=== PATIENT | female | born 1960 | race Hispanic/Latino ===

== ENCOUNTER 2018-05-06 13:07 | Observation (INO) | payer OTHER ==
[~2018-05-06] VITALS: Ht 154.9 cm; Wt 80.7 kg
--- OUTSIDE RECORDS SUMMARY | 2018-05-06 13:10 | XMS REPORT | Summary of Care ---
Author Author [facility] Organization [facility] Address Unknown Phone Unavailable Encounter KARLA Napoles(RICHY) [id number] Date(s): 01/14/16 - 01/14/16 [facility] [address] [place] [address]- Discharge Disposition: Left Against Medical Advise Attending Physician: Edilberto Ren MD Vital Signs Most recent to 1 oldest [Reference Range]: Height 154.94 cm (01/14/16 12:18 PM) Temperature Oral 98.4 DegF [96.4-99.1 DegF] (01/14/16 12:18 PM) Blood Pressure 180/95 mmHg [90-140/60-90 mmHg] *HI* (01/14/16 12:18 PM) Respiratory Rate 18 BRMIN [14-20 BRMIN] (01/14/16 12:18 PM) Peripheral Pulse 82 bpm Rate [60-100 bpm] (01/14/16 12:18 PM) Weight 86.364 kg (01/14/16 12:18 PM) Body Mass Index 35.98 m2 (01/14/16 12:18 PM) Problem List Condition Effective Dates Status Health Status Informant Hypertension(Confirm Resolved ed) Allergies, Adverse Reactions, Alerts Substance Reaction Severity Status aspirin Active Medications Benadryl 25 mg, 0.5 mL, Route: IVP, Drug form: INJ, ONCE, Dosing Weight 86.364, kg, Prior ity: STAT, Start date: 01/14/16 12:25:00 ALUMINUM POLISHER, Stop date: 01/14/16 12:25:00 ALUMINUM POLISHER Notes: (Same as: Benadryl) Start Date: 01/14/16 Stop Date: 01/14/16 Status: Ordered Reglan 10 mg, 2 mL, Route: IVP, Drug form: INJ, ONCE, Dosing Weight 86.364, kg, Priorit y: STAT, Start date: 01/14/16 12:25:00 ALUMINUM POLISHER, Stop date: 01/14/16 12:25:00 ALUMINUM POLISHER Notes: (Same as: Claudette) Start Date: 01/14/16 Stop Date: 01/14/16 Status: Ordered Sodium Chloride 0.9% (Bolus) IV 1,000 mL, 1,000 ml/hr, Infuse Over: 1 hr, Route: IV, 1,000, Drug form: INJ, ONCE , Priority: STAT, Dosing Weight 86.364 kg, Start date: 01/14/16 12:26:00 ALUMINUM POLISHER, Du ration: 1 doses or times, Stop date: 01/14/16 12:26:00 ALUMINUM POLISHER Start Date: 01/14/16 Stop Date: 01/14/16 Status: Ordered Tylenol 650 mg, Route: PO, Drug form: TAB, ONCE, Dosing Weight 86.364, kg, Priority: STA T, Start date: 01/14/16 12:30:00 ALUMINUM POLISHER, Stop date: 01/14/16 12:30:00 ALUMINUM POLISHER Start Date: 01/14/16 Stop Date: 01/14/16 Status: Completed Results No data available for this section Immunizations No data available for this section Procedures No data available for this section Social History No data available for this section Assessment and Plan No data available for this section
--- OUTSIDE RECORDS SUMMARY | 2018-05-06 13:10 | XMS REPORT | Summary of Care ---
Author Author [facility] Organization [facility] Address Unknown Phone Unavailable Encounter HQ Anupamantr_kell(FIN) [id number] Date(s): 10/24/16 - 10/24/16 [facility] [address] [place] [address]- Discharge Disposition: Home or Self Care Attending Physician: Joe Arteaga MD Referring Physician: Joe Arteaga MD Vital Signs No data available for this section Problem List Condition Effective Dates Status Health Status Informant Hypertension(Confirm Resolved ed) Allergies, Adverse Reactions, Alerts Substance Reaction Severity Status aspirin Active Medications No data available for this section Results No data available for this section Immunizations No data available for this section Procedures No data available for this section Social History No data available for this section Assessment and Plan No data available for this section
--- OUTSIDE RECORDS SUMMARY | 2018-05-06 13:10 | XMS REPORT | Clinical Summary ---
Author Author [facility] Address Unknown Phone Unavailable Care Team Providers Care Desktop Analyst Name Role Phone Asked, No Pcp PCP Unavailable Allergies Comments Active Allergy Reactions Severity Noted Date Aspirin 03/24/2017 Lisinopril 03/24/2017 Medications End Date Status Medication Sig Dispensed Refills Start Date Active omeprazole-sodium Take 1 0 bicarbonate (OMEPPI) capsule by 40-1.1 mg-gram per mouth daily capsule before breakfast. Active telmisartan (MICARDIS) 80 Take 80 mg by 0 MG tablet mouth daily. Active atorvastatin (LIPITOR) 20 Take 20 mg by 0 MG tablet mouth daily. Default OP ins 10/13/2018 Active gabapentin (NEURONTIN) Take 1 60 capsule 2 300 mg capsule capsule (300 8 mg total) by mouth 2 (two) times a day. 08/10/2017 Discontinued traMADol (ULTRAM) 50 mg Take 50 mg by 0 tablet mouth every 6 (six) hours as needed for moderate pain. 10/13/2017 Discontinued gabapentin (NEURONTIN) Take 1 90 capsule 11 300 mg capsule capsule (300 8 mg total) by mouth 3 (three) times a day. Active Problems Problem Noted Date Chronic bilateral thoracic back pain 03/28/2017 Encounters Care Team Description Date Type Specialty Carlos Samayoa MD Thoracic facet joint syndrome (HCC) (Primary Dx) 04/19/2018 Office Visit Pain Medicine Carlos Samayoa MD Thoracic facet joint syndrome (HCC) (Primary Dx) 04/05/2018 Procedure visit Pain Medicine Carlos Samayoa MD Thoracic facet joint syndrome (HCC) (Primary Dx); Myofascial pain; Musculoskeletal pain, chronic 03/13/2018 Office Visit Pain Medicine Carlos Samayoa MD Thoracic facet joint syndrome (HCC) (Primary Dx) 02/20/2018 Procedure visit Pain Medicine Carlos Samayoa MD Thoracic facet joint syndrome (Primary Dx); Chronic pain syndrome; Myofascial pain 10/13/2017 Office Visit Pain Medicine Carlos Samayoa MD Thoracic facet joint syndrome (Primary Dx) 09/28/2017 Procedure visit Pain Medicine Carlos Samayoa MD Chronic pain syndrome (Primary Dx); Musculoskeletal pain, chronic; Thoracic facet joint syndrome 09/15/2017 Office Visit Pain Medicine Carlos Samayoa MD Myofascial pain (Primary Dx) 08/15/2017 Procedure visit Pain Medicine Carlos Samayoa MD Chronic pain syndrome (Primary Dx); Neuropathic pain; Myofascial pain; Musculoskeletal pain, chronic 08/10/2017 Office Visit Pain Medicine Keenan Beyer MD Cervical radiculopathy 07/14/2017 Hospital Radiology Encounter Keenan Beyer MD Thoracic radiculopathy 07/14/2017 Hospital Radiology Encounter Keenan Beyer MD Chronic bilateral thoracic back pain (Primary Dx) 07/05/2017 Office Visit Neurosurgery Luana Medellin MA Cervical radiculopathy (Primary Dx); Thoracic radiculopathy 07/05/2017 Transcribe Neurosurgery Orders after 05/05/2017 Family History Medical History Relation Name Comments Cancer Other back or neck problems/rheumatoid arthritis/coronary artery disease/high blood pressure/lung problems/diabetes/heart problems/stroke Relation Name Status Comments Other Other Social History Date Tobacco Use Types Packs/Day Years Used Never Smoker Smokeless Tobacco: Never Used Alcohol Use Drinks/Week oz/Week Comments No Sex Assigned at Date Recorded Not on file Industry Job Start Date Occupation Not on file Not on file Not on file Travel End Travel History Travel Start No recent travel history available. Last Filed Vital Signs Time Taken Vital Sign Reading 04/19/2018 2:09 PM BAIT TIER Blood Pressure 102/72 04/19/2018 2:09 PM BAIT TIER Pulse 90 - Temperature - - Respiratory Rate - - Oxygen Saturation - - Inhaled Oxygen - Concentration 10/13/2017 10:08 AM CDT Weight 79.4 kg (175 lb) 08/10/2017 3:21 PM CDT Height 154.9 cm (5' 1") 10/13/2017 10:08 AM CDT Body Mass Index 33.07 Plan of Treatment Health Maintenance Due Date Last Done Comments CERVICAL CANCER SCREENING 1982 BREAST CANCER SCREENING 2011 COLON CANCER SCREENING 2011 SHINGLES VACCINES (#1) 2011 INFLUENZA VACCINE 10/04/2017 Procedures Comments Procedure Name Priority Date/Time Associated Diagnosis MRI THORACIC SPINE WO Routine 07/14/2017 Thoracic radiculopathy CONTRAST 3:22 PM CDT MRI CERVICAL SPINE WO Routine 07/14/2017 Cervical radiculopathy CONTRAST 3:00 PM CDT after 05/05/2017 Results * MRI Thoracic Spine Wo Contrast (07/14/2017 3:22 PM CDT) Narrative Performed At [facility] EXAMINATION: MRI THORACIC SPINE WO CONTRAST CLINICAL HISTORY: M54.14 Radiculopathythoracic region, THORACACIC RADICULOPATHY COMPARISON:None TECHNIQUE: Multiplanar multisequence noncontrast enhanced examination was performed of the thoracic spine. FINDINGS: Vertebral body heights are maintained. Bone marrow signal is within normal limits. Cord signal and size appear normal. Patent spinal canal and neural foramina at all thoracic levels. Few areas of mild ligamentum flavum thickening in the lower thoracic spine. No more than minimal disc bulge or protrusion at any thoracic level. IMPRESSION: Minimal degenerative changes of the thoracic spine without significant spinal canal or neural foraminal stenosis. [id number] Procedure Note Interface, Radiology Results Incoming - 07/14/2017 5:26 PM CDT EXAMINATION: MRI THORACIC SPINE WO CONTRAST CLINICAL HISTORY: M54.14 Radiculopathy thoracic region, THORACACIC RADICULOPATHY COMPARISON: None TECHNIQUE: Multiplanar multisequence noncontrast enhanced examination was performed of the thoracic spine. FINDINGS: Vertebral body heights are maintained. Bone marrow signal is within normal limits. Cord signal and size appear normal. Patent spinal canal and neural foramina at all thoracic levels. Few areas of mild ligamentum flavum thickening in the lower thoracic spine. No more than minimal disc bulge or protrusion at any thoracic level. IMPRESSION: Minimal degenerative changes of the thoracic spine without significant spinal canal or neural foraminal stenosis. [id number] Performing Organization Address City/State/Zipcode Phone Number [facility] [address] [place] [address] * MRI Cervical Spine Wo Contrast (07/14/2017 3:00 PM CDT) Narrative Performed At EXAMINATION:MRI CERVICAL SPINE WO CONTRAST [facility] CLINICAL HISTORY:M54.12 Radiculopathycervical region, NECK PAINCERVICAL SPINE, CERVICAL RADICULOPATHY COMPARISON:None. FINDINGS: Cervical spine alignment is within normal limits. No suspicious focal bone marrow lesions. Visualized spinal cord is normal in appearance. C2-3: No central canal or foraminal narrowing. C3-4: No central canal or foraminal narrowing. C4-5: No central canal or foraminal narrowing. C5-C6: No central canal or foraminal narrowing. C6-C7: No central canal or foraminal narrowing. C7-T1: No central canal or foraminal narrowing. IMPRESSION: No canal or foraminal narrowing in the cervical spine. [id number] Procedure Note Interface, Radiology Results Incoming - 07/14/2017 4:23 PM CDT EXAMINATION: MRI CERVICAL SPINE WO CONTRAST CLINICAL HISTORY: M54.12 Radiculopathy cervical region, NECK PAIN CERVICAL SPINE, CERVICAL RADICULOPATHY COMPARISON: None. FINDINGS: Cervical spine alignment is within normal limits. No suspicious focal bone marrow lesions. Visualized spinal cord is normal in appearance. C2-3: No central canal or foraminal narrowing. C3-4: No central canal or foraminal narrowing. C4-5: No central canal or foraminal narrowing. C5-C6: No central canal or foraminal narrowing. C6-C7: No central canal or foraminal narrowing. C7-T1: No central canal or foraminal narrowing. IMPRESSION: No canal or foraminal narrowing in the cervical spine. [facility]-[id number] Performing Organization Address City/State/Zipcode Phone Number [facility] [address] [place] [address] after 05/05/2017 Insurance Payer Benefit Subscriber ID Type Phone Address Plan / Group [employer] xxxxxxxxx PPO /[employer] SIG ADMIN Advance Directives Patient has advance care planning documents on file. For more information, grabiel thao contact: Julian Almanzar [address] [facility] [place] [address]
--- OUTSIDE RECORDS SUMMARY | 2018-05-06 13:10 | XMS REPORT | Continuity of Care Document ---
Author Author [facility] Address Unknown Phone Unavailable Problems Problem Status Onset Date Classification Date Reported Comments Source R10.10 Active 10/16/2017 [facility] Pain in thoracic spine 06/23/2017 09/21/2017 [facility] [place] BACK Active 03/06/2017 [facility] [place] MENOPAUSAL Active 02/16/2017 [facility] M54.9 - DORSALGIA, UNSPECIFIED M48.50XA Active 02/08/2017 [facility] Diaza R68.81-EARLY SATIETY , K21.0 - GASTRO-ES Active 10/12/2016 [facility] MIGRAINS Active 01/14/2016 [facility] Hypertension Resolved Problem 09/21/2017 [facility] [place] Hypertension Resolved Problem 03/06/2017 [facility] Other specified dorsopathies, thoracic region 08/22/2017 [facility] [place] Essential hypertension 08/22/2017 [facility] Medications Medication Details Route Status Patient Instructions Ordering Provider Order Date Source Tylenol 650 mg, Route: PO, Drug form: TAB, ONCE, Dosing Weight 86.364, kg, Priority: STAT, Start date: 01/14/16 12:30:00 WEB ANALYTICS SPECIALIST, Stop date: 01/14/16 12:30:00 WEB ANALYTICS SPECIALIST Inactive 01/14/2016 [facility] Sodium Chloride 0.154 MEQ/ML Injectable Solution 1,000 mL, 1,000 ml/hr, Infuse Over: 1 hr, Route: IV, 1,000, Drug form: INJ, ONCE, Priority: STAT, Dosing Weight 86.364 kg, Start date: 01/14/16 12:26:00 WEB ANALYTICS SPECIALIST, Duration: 1 doses or times, Stop date: 01/14/16 12:26:00 WEB ANALYTICS SPECIALIST Inactive 01/14/2016 [facility] Reglan 10 mg, 2 mL, Route: IVP, Drug form: INJ, ONCE, Dosing Weight 86.364, kg, Priority: STAT, Start date: 01/14/16 12:25:00 WEB ANALYTICS SPECIALIST, Stop date: 01/14/16 12:25:00 CSTNotes: (Same as: Reglan) Inactive 01/14/2016 [facility] Benadryl 25 mg, 0.5 mL, Route: IVP, Drug form: INJ, ONCE, Dosing Weight 86.364, kg, Priority: STAT, Start date: 01/14/16 12:25:00 WEB ANALYTICS SPECIALIST, Stop date: 01/14/16 12:25:00 CSTNotes: (Same as: Benadryl) Inactive 01/14/2016 [facility] Allergies, Adverse Reactions, Alerts Substance Category Reaction Severity Reaction type Status Date Reported Comments Source aspirin Assertion Drug allergy Active [facility] [place] Immunizations Immunization Date Given Site Status Last Updated Comments Source Results Order Name Results Value Reference Range Date Interpretation Comments Source Abdomen complete US Abdomen complete US Patient Name: ELSIE CURRY : 1960; Age: 57 years Female MR: [id number] Study: Abdomen complete US 10/23/2017 7:57 AM CDT CLINICAL INDICATION: upper abdominal pain - upper abdominal pain COMPARISON: None TECHNIQUE: Grayscale and limited color sonographic evaluation of the abdomen was performed using standard technique. FINDINGS: Liver: The liver demonstrates increased echogenicity and is normal in size, measuring 13.1 cm. No focal liver lesion identified. The main portal vein demonstrates normal hepatopedal flow. Gallbladder: Normal appearance of the gallbladder without evidence of stones, wall thickening, or pericholecystic fluid. Biliary: No intra or extrahepatic biliary ductal dilatation. The common bile duct measures 0.28 cm. Pancreas: The visualized portions of the pancreatic body are unremarkable. Spleen: The spleen is normal in echogenicity and in size, measuring 10.7 cm in length. Kidney: The right kidney measures 10.9 cm in length. The left kidney measures 11.1 cm in length. Normal renal echogenicity and contour without evidence of hydronephrosis. Aorta and IVC: The visualized portions are unremarkable. No evidence of free fluid. IMPRESSION: Hepatic steatosis. SL: [id number] 10/23/2017 - - Read by: Jorge Stovall MD Dictated Date/time: 10/23/17 09:39 Electronically Signed by: Jorge Stovall MD 10/23/17 09:41 FINAL REPORT [facility] Bone Density Scan Bone Density Scan Patient Name: ELSIE CURRY : 1960; Age: 57 years y/o Female MR: [id number] Study: Bone Density Scan 02/20/2017 10:49 AM WEB ANALYTICS SPECIALIST Ordering Physician: Andressa Paige MD Clinical Indication: - N95.1 Menopausal and female climacteric states. Comparison: None FINDINGS: The axial lumbar bone mineral density is 100% of the expected age matched bone mass with a T-score 0.0. Axial lumbar average BMD is 1.050 g/cm2. The left femoral neck bone mineral density is 100% of the expected age matched bone mass with a T-score of 0.0. Left femoral neck BMD is 0.878 g/cm2. The total femoral BMD is 1.157 g/cm2. IMPRESSION: 1. Normal bone mineral density of the lumbar spine. 2. Normal bone mineral density of the left femoral neck. The World Health Organization has established that OSTEOPOROSIS occurs at -2.5 or more standard deviations (SD) below peak bone mass. OSTEOPENIA (low bone mass) occurs at -1.0 standard deviations to -2.5 standard deviations below peak bone mass. SL: [id number] 02/20/2017 - - Read by: Sammy Gonzalez MD Dictated Date/time: 02/20/17 11:20 Electronically Signed by: Sammy Gonzalez MD 02/20/17 11:20 FINAL REPORT [facility] Stomach emptying NM Stomach emptying NM Clinical Indication: - R68.81 Early satiety; Comparison: None TECHNIQUE: A gastric emptying study is performed using 1 mCi of technetium 99m sulfur colloid mixed with scrambled egg. FINDINGS: There is normal gastric emptying noted. The T-1/2 is 49 minutes (normal for solids < 90 minutes). There is progression of the radiotracer into bowel. At 4 hours there is 95.9% gastric emptying. IMPRESSION: 1. Normal gastric emptying. SL: [id number] 10/24/2016 - - Read by: Bora Ramires MD Dictated Date/time: 10/24/16 14:43 Electronically Signed by: Bora Ramires MD 10/24/16 14:44 FINAL REPORT [facility] Vital Signs Vital Sign Value Date Comments Source Weight 86.364 01/14/2016 [facility] BMI Calculated 35.98 01/14/2016 [facility] Temperature Oral (F) 98.4 F 01/14/2016 [facility] Systolic (mm Hg) 180 01/14/2016 [facility] Diastolic (mm Hg) 95 01/14/2016 [facility] Heart Rate 82 01/14/2016 [facility] Respitory Rate 18 01/14/2016 [facility] Height 154.94 cm 01/14/2016 [facility] Encounters Location Location Details Encounter Type Encounter Number Reason For Visit Attending Provider ADM Date DC Date Status Source [facility] [id number] Edilberto Guajardouer 01/14/2016 01/14/2016 [facility] Outpatient [id number] Joe Arteaga 10/24/2016 10/25/2016 [facility] Outpatient [id number] Andressa Paige 02/20/2017 02/21/2017 [facility] Phone Message [id number] 03/02/2017 03/04/2017 [facility] [place] [facility] Patients [id number] Keenan Beyer 04/17/2017 05/17/2017 [facility] [place] [facility] [place] [facility] Patients [id number] Keenan Beyer 05/17/2017 06/16/2017 [facility] [place] [facility] [place] [facility] Patients [id number] Keenan Beyer 06/19/2017 07/19/2017 [facility] [place] Procedures Procedure Code Date Perfomer Comments Source
--- OUTSIDE RECORDS SUMMARY | 2018-05-06 13:11 | XMS REPORT | Summary of Care ---
Author Author [facility] Organization [facility] Address Unknown Phone Unavailable Encounter HQ Encntr_kell(FIN) [id number] Date(s): 02/20/17 - 02/20/17 [facility] [address] [place] [address]- [phone] Discharge Disposition: Home or Self Care Attending Physician: Andressa Paige MD Referring Physician: Andressa Paige MD Vital Signs No data available for [...]
--- OUTSIDE RECORDS SUMMARY | 2018-05-06 13:11 | XMS REPORT | Summary of Care ---
Author Author [facility] [place] Organization [facility] Address Unknown Phone Unavailable Encounter HQ Encntr_alias(FIN) [id number] Date(s): 06/19/17 - 07/18/17 [facility] [place] Discharge Disposition: Home or Self Care Attending Physician: Keenan Beyer MD Vital Signs No data available for [...]
--- OUTSIDE RECORDS SUMMARY | 2018-05-06 13:11 | XMS REPORT | Summary of Care ---
Author Author [facility] Organization [facility] [place] Address Unknown Phone Unavailable Encounter HQ Encntr_alias(FIN) [id number] Date(s): 04/17/17 - 05/16/[address] [facility] [place] Encounter Diagnosis Pain in thoracic spine (Final) - 05/20/17 Other specified dorsopathies, thoracic region (Final) - Essential (primary) hypertension (Final) - Discharge Disposition: Home or Self Care Attending [...]
--- OUTSIDE RECORDS SUMMARY | 2018-05-06 13:11 | XMS REPORT | Summary of Care ---
Author Author [facility] [place] Organization [facility] Address Unknown Phone Unavailable Encounter HQ Encntr_alias(FIN) [id number] Date(s): 05/17/17 - 06/15/17 [facility] [place] Encounter Diagnosis Pain in thoracic spine (Final) - 06/22/17 Discharge Disposition: Home or Self Care Attending [...]
--- OUTSIDE RECORDS SUMMARY | 2018-05-06 13:11 | XMS REPORT | Summary of Care ---
Author Author [facility] Organization [facility] Address Unknown Phone Unavailable Encounter HQ Encntr_alias(FIN) [id number] Date(s): 03/02/17 - 03/03/17 [facility] Spine [facility] [address] [facility] [address] [phone] Vital Signs No data available for this [...]
--- OUTSIDE RECORDS SUMMARY | 2018-05-06 13:11 | XMS REPORT | Summary of Care ---
Author Author [facility] [place] Organization [facility] [place] Address Unknown Phone Unavailable Encounter HQ Encntr_alias(FIN) [id number] Date(s): 05/17/17 - 06/15/17 [facility] [place] Discharge Disposition: [...]
[2018-05-06] MEDS ORDERED: METFORMIN HCL500 MG PO (13:20)
[2018-05-06] MEDS ORDERED: GABAPENTIN300 MG PO (13:20)
[2018-05-06] MEDS ORDERED: MICARDIS40 MG PO (13:20)
[2018-05-06] MEDS ORDERED: ATORVASTATIN CA20 MG PO (13:20)
[2018-05-06] MEDS ORDERED: NITROGLYCERIN 0.4 MG SUBL SL ONE (13:30)
[2018-05-06] MEDS ORDERED: ASPIRIN 81 MG CHEW TAB PO ONE (13:30)
--- NOTE | 2018-05-06 13:47 | NUR ---
Xray at bedside.
[2018-05-06 13:53] LABS: BASOPHILS % 0.6 % (0.0-1.0); EOSINOPHILS # (AUTO) 0.1 (0.0-0.4); EOSINOPHILS % 1.1 % (0.0-6.0); HEMATOCRIT 38.5 % (34.2-44.1); HEMOGLOBIN 12.7 g/dL (12.0-16.0); LYMPHOCYTES # (AUTO) 2.1 (1.0-3.2); LYMPHOCYTES % 33.5 % (18.0-39.1); MEAN CORPUSCULAR HEMOGLOBIN 27.3 pg (28-32); MEAN CORPUSCULAR VOLUME 82.8 fL (81-99); MONOCYTES # (AUTO) 0.4 (0.2-0.8); MONOCYTES % 6.1 % (4.4-11.3); NEUTROPHILS # (AUTO) 3.6 (2.1-6.9); NEUTROPHILS % 58.4 % (38.7-80.0); PLATELET COUNT 315 x10e3/uL (140-360); RED BLOOD COUNT 4.65 x10e6/uL (3.6-5.1); RED CELL DISTRIBUTION WIDTH 13.9 % (11.7-14.4)
--- NOTE | 2018-05-06 14:11 | Diagnostic Imaging Report ---
Examination: Single AP view of the chest. COMPARISON: None. INDICATION: Chest pain DISCUSSION: Lines/tubes: None. Lungs: The lungs are well inflated and clear. No pneumonia or pulmonary edema. Pleura: No pleural effusion or pneumothorax. Heart and mediastinum: The heart and the mediastinum are unremarkable. Bones and soft tissues: No acute bony abnormalities. IMPRESSION: 1. No acute cardiopulmonary abnormalities. Signed by: Dr. Giuseppe [facility] M.D. on 05/06/2018 2:07 PM
[2018-05-06 14:27] LABS: ALANINE AMINOTRANSFERASE 18 IU/L (0-55); ALBUMIN 4.3 g/dL (3.5-5.0); ALBUMIN/GLOBULIN RATIO 1.1 (0.8-2.0); ALKALINE PHOSPHATASE 91 IU/L (40-150); ANION GAP 13.6 mmol/L (8-16); BLOOD UREA NITROGEN 10 mg/dL (7-26); BUN/CREATININE RATIO 12 (6-25); CALCIUM 10.1 mg/dL (8.4-10.2); CARBON DIOXIDE 24 mmol/L (22-29); CHLORIDE 104 mmol/L (98-107); CREATINE KINASE 107 IU/L (29-168); CREATININE, SERUM 0.81 mg/dL (0.57-1.11); EST GLOMERULAR FILTRATION RATE > 60 ML/MIN (60-); GLUCOSE 139 mg/dL (74-118); POTASSIUM 3.6 mmol/L (3.5-5.1); SODIUM 138 mmol/L (136-145)
[2018-05-06] MEDS ORDERED: NITROGLYCERIN 0.4 MG SUBL SL PRN (14:45)
[2018-05-06 14:46] LABS: THYROID STIMULATING HORMONE 1.251 uIU/mL (0.350-4.940)
--- OUTSIDE RECORDS SUMMARY | 2018-05-06 15:10 | XMS REPORT | Clinical Summary ---
Author Author [facility] Address Unknown Phone Unavailable Care Team Providers Care White Washer Name Role Phone Asked, No Pcp PCP [...] (Primary Dx) 08/15/2017 Procedure visit Pain Medicine aCrlos Samayoa MD Chronic pain syndrome (Primary Dx); [...] Taken Vital Sign Reading 04/19/2018 2:09 PM MAITRE D' Blood Pressure 102/72 04/19/2018 2:09 PM MAITRE D' Pulse 90 - Temperature - - Respiratory [...] significant spinal canal or neural foraminal stenosis. [id number] Procedure Note Interface, Radiology Results Incoming - [...] significant spinal canal or neural foraminal stenosis. [id number] Performing Organization Address City/State/Zipcode Phone Number [facility] [address] [place] [address] * MRI Cervical Spine Wo Contrast (07/14/2017 [...] or foraminal narrowing in the cervical spine. [id number] Procedure Note Interface, Radiology Results Incoming - [...] or foraminal narrowing in the cervical spine. [facility]-[id number] Performing Organization Address City/State/Zipcode Phone Number [facility] [address] [place] [address] after 05/05/2017 Insurance Payer Benefit Subscriber ID Type Phone Address Plan / Group [employer] xxxxxxxxx PPO /[employer] SIG ADMIN Advance Directives Patient has advance care planning documents on file. For more information, grabiel thao contact: Julian Almanzar [address] [place] [address]
--- OUTSIDE RECORDS SUMMARY | 2018-05-06 15:11 | XMS REPORT ---
Author Author [facility] Address Unknown Phone Unavailable Care Team Providers Care Instruction Dean Name Role Phone Leonardo FONTANA Unavailable Unavailable Problems This patient has no known problems. Allergies, Adverse Reactions, Alerts This patient has no known allergies or adverse reactions. Medications This patient has no known medications. Results Test Description Test Time Test Comments Text Results Atomic Results Result Comments CHEST SINGLE (PORTABLE) 2018-05-06 14:07:00 [place] [id number] Patient Name: ELSIE CURRY MR #: [id number] : 1960 Age/Sex: 58/F Req #: [id number] Adm Physician: Ordered by: GRACIE PATEL CONSOLIDATOR Report #: [id number] Location: ER Room/Bed: Procedure: [id number] DX/CHEST SINGLE (PORTABLE) Exam Date: 05/06/18 Exam Time: 1350 REPORT STATUS: Signed Examination: Single AP view of the chest. COM PARISON: None. INDICATION: Chest pain DISCUSSION: Lines/tubes: None. Lungs: The lungs are well inflated and clear. No pneumonia or pulmonary edema. Pleura: No pleural effusion or pneumothorax. Heart and mediastinum: The heart and the mediastinum are unremarkable. Bones and soft tissues: No acute bony abnormalities. IMPRESSION: 1. No acute cardiopulmonary abnormalities. Signed by: Dr. Demetra Castelan M.D. on 05/06/2018 2:07 PM Dictated By: DEMETRA CASTELAN MD 140 Transcribed By: YOHANA on 05/06/18 140 COPY TO: GRACIE PATEL NP
[2018-05-06] MEDS ORDERED: IBUPROFEN 400 MG TAB PO ONE (15:15)
[2018-05-06 15:18] LABS: BILIRUBIN,URINE NEGATIVE (NEGATIVE); CLARITY,URINE CLEAR (CLEAR); COLOR,URINE YELLOW (YELLOW); KETONES,URINE NEGATIVE (NEGATIVE); LEUKOCYTE ESTERASE ,URINE NEGATIVE (NEGATIVE); NITRITE,URINE NEGATIVE (NEGATIVE); PROTEIN,URINE DIPSTICK NEGATIVE (NEGATIVE); URINE UROBILINOGEN 0.2 mg/dL (0.2 - 1)
[2018-05-06 15:19] LABS: WBC,URINE (MAN) 0-5 /HPF (0-5)
[2018-05-06 15:20] LABS: BACTERIA,URINE FEW /HPF; EPITHELIAL CELLS,URINE MODERATE /LPF
[2018-05-06 15:53] VITALS: BP 120/78
[2018-05-06 16:03] VITALS: BP 124/62
[2018-05-06 16:14] VITALS: BP 124/74
[2018-05-06] MEDS ORDERED: PNEUMOCOCCAL VACCINE POLYVALENT 23 MCG/0.5 ML VIAL IM ONE (17:00)
--- NOTE | 2018-05-06 19:00 | NUR ---
Report and rounds completed. Resting in bed watching TV, family at bedside. No issues or concerns. Call light within reach. Will Continue to monitor.
[2018-05-06 20:00] VITALS: BP 125/71
--- NOTE | 2018-05-06 22:00 | NUR ---
In bed watching TV, family at bedside. Lab work obtained and education provided. No issues or concerns at this time.Call light within reach. Will continue to monitor.
[2018-05-07] VITALS (8 sets, daily range): BP systolic 106–123; BP diastolic 58–79
[2018-05-07 00:39] LABS: CREATINE KINASE MB 0.9 ng/mL (0-5.0)
--- NOTE | 2018-05-07 02:00 | NUR ---
Resting in bed, eyes closed resp even and unlabored. Family at bedside. Call light within reach. Will continue to monitor.
--- NOTE | 2018-05-07 06:00 | NUR ---
Resting in bed, eyes closed resp even and unlabored. Family at bedside. Call light within reach. Will continue to monitor.
[2018-05-07 06:42] LABS: CREATINE KINASE 89 IU/L (29-168)
[2018-05-07 07:08] LABS: CHOL/HDL RATIO 2.8 (3.0-3.6)
[2018-05-07] MEDS: TELMISARTAN 40 MG TAB PO SCH (09:00)
[2018-05-07] MEDS ORDERED: DEXTROSE 50% SYRINGE 50 ML IV PRN (09:00)
[2018-05-07] MEDS ORDERED: GABAPENTIN 300 MG CAP PO SCH (09:00)
[2018-05-07] MEDS ORDERED: GABAPENTIN 300 MG CAP PO PRN (09:45)
--- NOTE | 2018-05-07 09:54 | NUR ---
spoke with md baltazar regarding md valentine request to [facility] regarding order for stress test. states he would like to wait on echo results before scheduling procedure. echo at this time is pending.
--- NOTE | 2018-05-07 10:14 | NUR ---
MD JAMISON ROUNDED STATES STRESS TEST CANNOT BE SCHEDULED FOR TODAY BC PT HAD COFFEE IN THE AM. STATES TO CALL HIM WHEN ECHO IS COMPLETE SO HE CAN COME READ IMAGE. WILL SCHEDULE STRESS TEST OP.
[2018-05-07] MEDS: INSULIN LISPRO 100 UNIT/1 ML 3ML VIAL SQ SCH ×3 (11:30→21:00)
--- NOTE | 2018-05-07 15:00 | NUR ---
REPAGED YAQUELIN REGARDING ECHO COMPLETION. AWAITING FOR CALL BACK
[2018-05-07 15:05] LABS: CREATINE KINASE MB 0.8 ng/mL (0-5.0)
--- NOTE | 2018-05-07 16:29 | History and Physical ---
CHIEF COMPLAINT: Chest pain. HISTORY: The patient is a 58-year-old female with left-sided chest pain, radiating to her left upper extremity. The patient is otherwise stable. No shortness of breath. Chest pain is vague at this time. No previous coronary artery disease. Baseline recent diagnosis with diabetes type 2. Otherwise, the patient is stable and in no distress. PAST MEDICAL HISTORY: Diabetes, type 2. PAST SURGICAL HISTORY: Noncontributory. SOCIAL HISTORY: The patient does not smoke or use alcohol. No recreational drugs. ALLERGIES: ASPIRIN. HOME MEDICATIONS: List would be reviewed. REVIEW OF SYSTEMS: Vague chest discomfort now. Some pressure, but not radiating. No abdominal pain. No nausea or vomiting. PHYSICAL EXAMINATION: VITAL SIGNS: Temperature is 98, blood pressure 117/62, pulse rate 83, and respirations 18. GENERAL: The patient is in no acute distress. Awake. HEENT: Normocephalic and atraumatic. Anicteric. NECK: Supple grossly. PULMONARY: Clear. CARDIOVASCULAR: Regular rate and rhythm. ABDOMEN: Soft and unremarkable. Obese. EXTREMITIES: No cyanosis or edema. NEUROLOGIC: No focal deficit. LABORATORY DATA: Sodium is 138, potassium 3.6, chloride 104, bicarb 24, BUN 10, creatinine 0.8, and glucose 139. WBC is 6.2, hemoglobin 12.7, hematocrit 38.5, and platelets 315. IMPRESSION: 1. Chest pain. 2. Recent diabetes type 2. PLAN: Echocardiogram. Consultation with Dr. Michael Marie. We will monitor the patient closely. EKG is normal sinus rhythm without any abnormalities. If once cleared by Dr. Michael Marie, the patient should be able to go home today. MD JW Sosa/ARLENEL /[id number]
--- NOTE | 2018-05-07 18:05 | Consultation ---
DATE OF CONSULTATION: Cardiology Consultation REASON FOR CONSULTATION: Chest pain. HISTORY OF PRESENT ILLNESS: This is a 58-year-old woman with a history of obesity, diabetes mellitus, hypertension, hyperlipidemia, who presented to the emergency department after developing substernal [id number] chest pressure while singing in denominational. She had some radiation to the left arm and has currently resolved completely. She also reports mild progression of shortness of breath over the last two weeks. Upon arrival here, she ruled out for acute myocardial infarction with three sets of negative cardiac enzymes and a normal 12-lead electrocardiogram. Again, she is currently completely asymptomatic from a cardiovascular standpoint. She had a stress test approximately 6-7 years ago, which was within normal limits. REVIEW OF SYSTEMS: Twelve-point review of system was conducted and is negative, otherwise as stated above in the HPI. PAST MEDICAL HISTORY: As stated above in the HPI. PAST SURGICAL HISTORY: None recent reported. PAST FAMILY HISTORY: No premature coronary artery disease or sudden cardiac . SOCIAL HISTORY: No illicit drug use, alcohol use, or tobacco use. ALLERGIES: ASPIRIN. MEDICATIONS: See medication reconciliation form. PHYSICAL EXAMINATION: VITAL SIGNS: Temperature is 96.8, heart rate 75, respirations are 20, blood pressure is 106/58, and oxygen saturation 96% on room air. GENERAL: She is a well-appearing, well-built woman, lying comfortably in bed. HEAD: Normocephalic and atraumatic. EYES: Extraocular movements are intact. Conjunctivae are clear. NECK: No JVD. No bruits. CARDIOVASCULAR: Regular rate and rhythm. No murmurs. LUNGS: Clear to auscultation. ABDOMEN: Soft, nontender. EXTREMITIES: No edema. VASCULAR: 2+ pulses. CARDIOVASCULAR MEDICATIONS: Reviewed. LABORATORY DATA: Reviewed. Negative troponins. LDL 82 and triglycerides 110. BNP is less than 10. Twelve-lead electrocardiogram shows normal sinus rhythm. Chest x-ray shows "no acute cardiopulmonary abnormalities." IMPRESSION: 1. Shortness of breath. 2. Chest pain. 3. Hypertension. 4. Hyperlipidemia. 5. Diabetes mellitus. RECOMMENDATIONS: The patient is ruled out for acute coronary syndrome. Her troponins are within normal limits, her 12-lead electrocardiogram was normal, her BMP and lipids were within normal limits. Her symptoms are atypical. We will check a 2D echocardiogram and if this is normal, the patient may be discharged from a cardiovascular standpoint with outpatient stress testing as she has already eaten breakfast and drank coffee today. Thank you for the consultation. DO STEVE Watt/EVGENY /[id number]
--- NOTE | 2018-05-07 19:24 | NUR ---
Report received and walking rounds complete. Pt resting in bed and in no apparent distress. All safety measures ensured and call riley near.
--- NOTE | 2018-05-07 20:40 | NUR ---
Pt given shower
[2018-05-07] MEDS ORDERED: ATORVASTATIN 20 MG TAB PO SCH (21:00)
--- NOTE | 2018-05-08 07:05 | NUR ---
rounded with filing and polishing supervisor nurse, patient aware of change and in no distress. Call riley within reach and bed in lowest position.
[2018-05-08] MEDS: INSULIN LISPRO 100 UNIT/1 ML 3ML VIAL SQ SCH ×3 (07:30→16:30)
[2018-05-08 09:00] VITALS: BP 115/63
[2018-05-08] MEDS: TELMISARTAN 40 MG TAB PO SCH (09:00)
[2018-05-08] MEDS ORDERED: REGADENOSON 0.4 MG/5 ML SYR IV ONE (09:39)
--- NOTE | 2018-05-08 09:40 | NUR ---
patient leaving the floor for stress test via wheelchair. Alert and oriented and in no distress.
[2018-05-08 09:45] VITALS: BP 115/63
--- NOTE | 2018-05-08 10:39 | NUR ---
SOCIAL WORK INITIAL ASSESSMENT Alum Operator to bedside to discuss plan of care with patient/family. CM/SW role and care transitions discussed. Anticipated discharge plan discussed along with duration of care. CM/SW discussed patients right to make decisions in care. CM/SW work hours given. 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 Name and number was also written on the patients whiteboard. Patient verbalized understanding of discussion. CM will follow-up with ongoing discharge and transition of care needs.
--- NOTE | 2018-05-08 11:00 | NUR ---
patient arrived back on unit alert and oriented, via wheelchair. Call riley within reach, bed in lowest position and daughter at bedside.
[2018-05-08 12:13] VITALS: BP 109/59
--- NOTE | 2018-05-08 14:18 | NUR ---
patient wheeled to [facility] for remainder of stress test to be performed. Patient in stable condition
[2018-05-08 14:28] VITALS: BP 119/73
--- NOTE | 2018-05-08 14:57 | NUR ---
patient back on the unit via wheelchair. Patient alert and oriented and in no distress.
[2018-05-08 16:37] VITALS: BP 103/61
--- NOTE | 2018-05-08 17:35 | NUR ---
Patient alert and oriented with daughter at bedside. Discharge instructions given to patient and daughter, both verbalized understanding. IV discontinued at this time, catheter in tact and small dressing applied. Patient refusing wheelchair assistance to escort off the floor. Patient in stable condition with steady gait, to walk to personal auto for daughter to drive home.
--- NOTE | 2018-05-08 20:12 | Progress Note ---
DATE: SUBJECTIVE: The patient is feeling much better. Denies any chest pain or shortness of breath overnight. OBJECTIVE: VITAL SIGNS: Temperature is 97.4, heart rate is 80, respirations are 22, blood pressure is 103/61, oxygen saturation 96% on room air. GENERAL: Well appearing, no apparent distress. Alert and oriented. CARDIOVASCULAR: Regular rate and rhythm. No murmurs. LUNGS: Clear to auscultation. ABDOMEN: Soft, nontender. EXTREMITIES: No edema. IMAGING: Stress test showed normal myocardial perfusion imaging with an ejection fraction greater than 70%. Echocardiogram showed left ventricular ejection fraction of 57%. IMPRESSION: 1. Precordial pain. 2. Hypertension. 3. Hyperlipidemia. 4. Diabetes mellitus. RECOMMENDATIONS: The patient ruled out for acute [place] and her stress test was within normal limits and she has a normal ejection fraction on echocardiography. Continue aggressive medical management and she can be discharged with outpatient followup. DO STEVE Wtat/MODL /[id number]
== END 2018-05-08 17:50 | disposition home or self-care (01) ==
LOC: ER 13:07 → ERHOLD 14:45 → IMCU 15:44
PROVIDERS: ADMIT Internal Medicine; ATTEND Internal Medicine
DX: R07.2 Precordial pain (principal); E11.9 Type 2 diabetes mellitus without complications; E66.9 Obesity, unspecified; E78.5 Hyperlipidemia, unspecified; Z88.6 Allergy status to analgesic agent; I10 Essential (primary) hypertension; Z68.33 Body mass index [BMI] 33.0-33.9, adult
CPT/HCPCS: 36415 ×3; 71045; 78452; 80053; 80061; 81001; 82550 ×2; 82553 ×2; 82948 ×3; 83880; 84443; 84484 ×2; 85025; 85379; 87086; 87400; 90732; 93005; 93017; 93306; 99284; A9502; G0378 ×3; J2785

== ENCOUNTER → 2020-09-09 | Outpatient (CLI) | payer OTHER ==
[~2020-09-09] MED LIST: ATORVASTATIN CA20 MG PO; GABAPENTIN300 MG PO; GADOBENATE DIMEGLUMINE 1 ML IV ONE; METFORMIN HCL500 MG PO; MICARDIS40 MG PO; SODIUM CHLORIDE 0.9% 50ML 50 ML ONE
== END ==
LOC: MRI 07:27
PROVIDERS: ATTEND Internal Medicine Gastroenterology
DX: R10.10 Upper abdominal pain, unspecified (principal); Z87.19 Personal history of other diseases of the digestive system
CPT/HCPCS: 74183

== ENCOUNTER → 2020-10-22 | Day surgery (SDC) | payer OTHER ==
[~2020-10-22] MED LIST changes: -GADOBENATE DIMEGLUMINE 1 ML IV ONE; +OMEPRAZOLE40 MG PO; -SODIUM CHLORIDE 0.9% 50ML 50 ML ONE
[2020-10-22 11:55] VITALS: BP 109/71
[2020-10-22 12:07] LABS: WBC,FECAL (FECAL LACTOFERRIN) POSITIVE (NEGATIVE)
[2020-10-23 15:08] LABS: C DIFFICILE TOXIN A&B AMP PROB NEGATIVE (NEGATIVE)
== END | disposition home or self-care (01) ==
LOC: OR 06:56
PROVIDERS: ATTEND Internal Medicine Gastroenterology
DX: K29.50 Unspecified chronic gastritis without bleeding (principal); K63.5 Polyp of colon; K29.80 Duodenitis without bleeding; K52.9 Noninfective gastroenteritis and colitis, unspecified; K20.90 Esophagitis, unspecified without bleeding; K22.8 Other specified diseases of esophagus; K62.89 Other specified diseases of anus and rectum; K64.8 Other hemorrhoids; K85.90 Acute pancreatitis without necrosis or infection, unspecified; K76.0 Fatty (change of) liver, not elsewhere classified; D64.9 Anemia, unspecified; I10 Essential (primary) hypertension; F41.9 Anxiety disorder, unspecified; Z88.6 Allergy status to analgesic agent; Z88.8 Allergy status to other drugs, medicaments and biological substances; Z01.810 Encounter for preprocedural cardiovascular examination; Z01.812 Encounter for preprocedural laboratory examination; Z20.822 Contact with and (suspected) exposure to COVID-19
CPT/HCPCS: 36415; 43239; 45380; 83630; 83993; 85651; 86140; 86256; 86671; 87045; 87177; 87328; 87493; 93005; U0002; 45378

== ENCOUNTER → 2022-04-29 | Outpatient (CLI) | payer OTHER ==
[~2022-04-29] MED LIST changes: +DIATRIZOATE MEGL/DIATRIZOA SOD 30 ML BTL PO ONE; +IOPAMIDOL 370 MG/ML 100 ML INFUS..BTL INJ ONE
[2022-04-29 08:07] LABS: CREATININE, SERUM 0.75 mg/dL (0.57-1.11)
== END ==
LOC: CT 07:08
PROVIDERS: ATTEND Internal Medicine Gastroenterology
DX: R10.84 Generalized abdominal pain (principal); K29.70 Gastritis, unspecified, without bleeding; Z86.010 Personal history of colon polyps
CPT/HCPCS: 36415; 74177; 82565; 84520; Q9963; Q9967